=== PATIENT | female | born 1955 | race American Indian/Alaskan Native ===

== ENCOUNTER 2016-07-06 11:18 | Emergency (ER) | payer BC ==
[2016-07-06 13:40] LABS: Basophils % (Auto) 0.8 % (0.0-1.8); Eosinophils % (Auto) 1.3 % (0.0-4.3); Mean Corpuscular HGB Conc 33 % (30-34); Mean Corpuscular Hemoglobin 30 pg (28-32); Mean Corpuscular Volume 91 fl (79-97); Platelet Count 173 K/mm3 (140-440); Red Blood Count 4.73 M/mm3 (3.65-5.03); Red Cell Distribution Width 13.1 % (13.2-15.2)
[2016-07-06 13:41] LABS: Bilirubin,Urine NEG (Negative); Blood,Urine SM (Negative); Ketones,Urine NEG (Negative); Leukocyte Esterase,Urine LG (Negative); Mucus,Urine FEW /HPF; Nitrite,Urine NEG (Negative); Protein,Urine <15 mg/dL mg/dL (Negative); Urobilinogen,Urine < 2.0 mg/dL (<2.0)
[2016-07-06 13:54] LABS: Alanine Aminotransferase 15 units/L (7-56); Albumin 4.6 g/dL (3.9-5); Albumin/Globulin Ratio 1.7 %; Alkaline Phosphatase 96 units/L (35-129); Anion Gap 17 mmol/L; BUN/Creatinine Ratio 12.22; Bilirubin,Total 0.4 mg/dL (0.1-1.2); Blood Urea Nitrogen 11 mg/dL (7-17); Calcium 9.8 mg/dL (8.4-10.2); Carbon Dioxide 26 mmol/L (22-30); Chloride 100.6 mmol/L (98-107); Glucose 91 mg/dL (65-100); Lipase 21 units/L (13-60); Potassium 3.7 mmol/L (3.6-5.0); Sodium 140 mmol/L (137-145); Total Protein 7.3 g/dL (6.3-8.2)
--- NOTE | 2016-07-06 19:08 | Emergency Department Report ---
HPI - General Chief Complaint: Abdominal Pain Time Seen by Provider: 07/06/16 18:38 - HPI HPI: This is a 60-year-old Afro-Thai female presents the emergency department from home with a 4-5 day history of gas and bloating to the abdomen. She denies any actual abdominal pain. She is also concerned that she is constipated as she says she has not had a satiating bowel movement in about a week. She does have some bowel movements but they're small, hard and not satiating. She denies any nausea, vomiting, fever, dysuria, vaginal bleeding or discharge. Patient also complains of some pain to the paraspinal lower back. She denies any numbness or paresthesias or any neurological deficits. She has a history of remote skin cancer, hypertension. She has a previous bowel obstruction a few years ago but did not require any surgical intervention. She also has a history of polyps removed during a colonoscopy and tubal ligation. Her primary care doctor is a Dr. Nayla Justice. She tried some gas ex and Dulcolax for her symptoms without much relief. No recent travel or sick contacts at home. ED Past Medical Hx - Past Medical History Previous Medical History?: Yes Hx Hypertension: Yes Hx of Cancer: Yes (left hip skin cancer) Additional medical history: Bowel obstruction, Righ t lung collapsed, Deep vein insuifficiency, Abd. pain - Surgical History Past Surgical History?: Yes Additional Surgical History: Left hip skin cancer removed, Colonoscopy with polyps removed, Tubaligation - Social History Smoking Status: Former Smoker Substance Use Type: Alcohol, Prescribed - Medications Home Medications: Home Medications Medication Instructions Recorded Confirmed Last Taken Type amLODIPine [Norvasc] 5 mg PO QDAY 05/05/14 07/06/16 07/06/16 History Aspirin [Adult Low Dose Aspirin EC] 81 mg PO DAILY 07/06/16 07/06/16 07/06/16 History Docusate Sodium [Colace] 100 mg PO BID PRN #20 capsule 07/06/16 Unknown Rx Magnesium Citrate [Citrate of 300 ml PO NOW #1 bottle 07/06/16 Unknown Rx Magnesia] Triamter/Hctz 37.5-25 mg 1 tab PO DAILY 07/06/16 07/06/16 07/06/16 History [Maxzide-25] ED Review of Systems ROS: Stated complaint: ABD PAIN Other details as noted in HPI Comment: All other systems reviewed and negative Constitutional: denies: chills, fever Eyes: denies: eye pain, eye discharge, vision change ENT: denies: ear pain, throat pain Respiratory: denies: cough, shortness of breath, wheezing Cardiovascular: denies: chest pain, palpitations Gastrointestinal: constipation, other (gas and bloating). denies: nausea, vomiting Genitourinary: denies: urgency, dysuria, discharge Musculoskeletal: denies: back pain, joint swelling, arthralgia Skin: denies: rash, lesions Neurological: denies: headache, weakness, paresthesias Physical Exam - Physical Exam Vital Signs: Vital Signs 07/06/16 07/06/16 11:37 16:37 Temperature 98.3 F 98.4 F Pulse Rate 79 69 Respiratory 18 18 Rate Blood Pressure 148/96 142/84 O2 Sat by Pulse 96 Oximetry Physical Exam: GENERAL: The patient is well-developed well-nourished. HEENT: Normocephalic. Atraumatic. Extraocular motions are intact. Patient has moist mucous membranes. Pupils equal reactive to light bilaterally. NECK: Supple. Trachea is midline. CHEST/LUNGS: Clear to auscultation. There is no respiratory distress noted. HEART/CARDIOVASCULAR: Regular. There is no tachycardia. There is no gallop rub or murmur. ABDOMEN: Abdomen is soft, nontender. No guarding rebound tenderness. Patient has normal bowel sounds. There is no abdominal distention. SKIN: Skin is warm and dry. NEURO: The patient is awake, alert, and oriented. The patient is cooperative. The patient has no focal neurologic deficits. The patient has normal speech and gait. MUSCULOSKELETAL: There is no tenderness or deformity. There is no limitation range of motion. There is no evidence of acute injury. ED Course Vital Signs 07/06/16 07/06/16 11:37 16:37 Temperature 98.3 F 98.4 F Pulse Rate 79 69 Respiratory 18 18 Rate Blood Pressure 148/96 142/84 O2 Sat by Pulse 96 Oximetry ED Medical Decision Making - Lab Data Result diagrams: 07/06/16 13:07 07/06/16 13:07 - Radiology Data Radiology results: report reviewed Abdominal x-ray was read by radiology as a gas pattern and stool consistent with constipation versus an adynamic ileus. - Medical Decision Making This is a 60-year-old female presents to the emergency department with complaint of some gas and/or bloating as well as a lack of a bowel movement for the past 3 days. Patient had labs that did not show any signs of infection, electrolyte abnormalities, renal insufficiency and she had normal belly labs including bilirubin, lipase and LFTs. Urinalysis does not show any urinary tract infection. X-ray was done that showed a large amount of bowel gas but nonspecific and nonobstructive. It was confirmed by radiology and read by them as constipation versus adynamic ileus. Patient's vital signs were stable throughout her ED course including being afebrile. The plan was going to be to treat the patient with some Colace, magnesium citrate and increased oral rehydration. Patient was asking about something "stronger" so a soapsuds enema was offered to get the patient more expedient relief. I spent 5-10 minutes sitting with the patient discussing the enema, the procedure and the risks versus benefits. In the and the patient decided that she would rather try the Colace and magnesium citrate first. However she understands to return to the emergency department if she uses the medications and follow the instructions and still continues to have constipation or a lack of a bowel movement and specifically if she begins to develop any abdominal distention or discomfort. Otherwise she will follow-up with her primary care doctor. - Differential Diagnosis constipation, bowel obstruction, ileus, colitis, gastritis Critical Care Time: No Critical care attestation.: If time is entered above; I have spent that time in minutes in the direct care of this critically ill patient, excluding procedure time. ED Disposition Clinical Impression: Bloating, Increased stool volume Disposition: DISCHARGED TO HOME OR SELFCARE Is pt being admited?: No Condition: Stable Instructions: Constipation (ED) Additional Instructions: Please follow-up with your primary care doctor in the next few days. Increase her oral rehydration. Return to the emergency department with any worsening of her symptoms or any acute distress. Prescriptions: Docusate Sodium [Colace] 100 mg PO BID PRN #20 capsule PRN Reason: Constipation Magnesium Citrate [Citrate of Magnesia] 300 ml PO NOW #1 bottle Referrals: TIM JUSTICE MD [Primary Care Provider] - 3-5 Days Time of Disposition: 20:42
--- NOTE | 2016-07-06 20:35 | XRay Report ---
FINAL REPORT EXAM: XR ABDOMEN 2V HISTORY: Abd pain TECHNIQUE: Supine and upright views of abdomen. PRIORS: None. FINDINGS: Moderate amount of retained stool. Nonspecific bowel gas pattern without features suggestive of mechanical obstruction. No apparent pneumoperitoneum. No abnormal calcifications. Osseous structures grossly unremarkable. Multiple, small metallic coils project over the abdomen probably postsurgical. IMPRESSION: 1. Nonspecific bowel gas pattern, which may be secondary to constipation or represent adynamic ileus. Followup may be warranted.
[2016-07-06 20:57] VITALS: BP 155/99
== END 2016-07-06 20:58 | disposition home or self-care (01) ==
LOC: ED 11:18
DX: R14.0 Abdominal distension (gaseous) (principal); R19.7 Diarrhea, unspecified; I10 Essential (primary) hypertension; C44.709 Unspecified malignant neoplasm of skin of left lower limb, including hip; Z87.891 Personal history of nicotine dependence; I82.409 Acute embolism and thrombosis of unspecified deep veins of unspecified lower extremity; Z79.82 Long term (current) use of aspirin
CPT/HCPCS: 36415; 74020; 80053; 81001; 83690; 85025

== ENCOUNTER 2016-10-24 16:00 | Outpatient (CLI) | payer BC ==
--- NOTE | 2016-10-25 09:22 | XRay Report ---
CHEST TWO VIEWS: 10/24/16 16:00:00 CLINICAL: Hypertension. COMPARISON: 05/05/14 FINDINGS: Normal heart and pulmonary vasculature. The lungs are hyperexpanded and hyperlucent . No airspace disease or pleural effusion.The bones and soft tissues are unremarkable. IMPRESSION: COPD and no acute change.
== END 2016-10-24 16:01 | disposition home or self-care (01) ==
LOC: XRAY 16:00
PROVIDERS: ATTEND Internal Medicine
DX: I10 Essential (primary) hypertension (principal); J44.9 Chronic obstructive pulmonary disease, unspecified; I51.7 Cardiomegaly; Z87.891 Personal history of nicotine dependence
CPT/HCPCS: 71020; 93005; 93010